=== PATIENT | female | born 1945 | race Caucasian/White ===

== ENCOUNTER → 2016-04-09 | Outpatient (CLI) | payer OTHER ==
[~2016-04-09] MED LIST: ASCO500T3 PO; ASPCH81X PO; ATEN100T8 PO; ATOR10TA88 PO; CALC-354 PO; CHOL2000 PO; FEXO1TAB46 PO; FLUT0.15 NAE; LEVO100T7 PO; LOSA1TAB38 PO; MULTCHW PO; SPIR50TA3 PO
== END | disposition home or self-care (01) ==
LOC: C.PATHSPEC 13:52
PROVIDERS: ATTEND Dermatology
DX: L82.1 Other seborrheic keratosis (principal); L72.0 Epidermal cyst

== ENCOUNTER → 2016-04-09 | Outpatient (CLI) | payer OTHER ==
[2016-04-09 09:58] LABS: BLOOD UREA NITROGEN 45 mg/dl (7-18); BUN/CREATININE RATIO 26.7 (10-20); CALCIUM 8.9 mg/dl (8.5-10.1); CARBON DIOXIDE 22 mmol/L (21-32); CHLORIDE 107 mmol/L (98-107); GLUCOSE 99 mg/dl (70-99); POTASSIUM 3.6 mmol/L (3.5-5.1); SODIUM 141 mmol/L (136-145)
[2016-04-09 11:30] LABS: URINE APPEARANCE CLEAR (CLEAR); URINE BILIRUBIN NEG (NEG); URINE COLOR YELLOW; URINE EPITHELIAL CELL AUTO >30 /lpf (0-5); URINE NITRITE NEG (NEG); URINE SPECIFIC GRAVITY 1.012 (1.000-1.030); UROBILINOGEN NEG (NEG); ZZUR CULT IF INDIC CLEAN CATCH YES
[2016-04-09 11:40] LABS: MANUAL MICROSCOPIC REQUIRED? NO; REVIEW REQ? YES
== END | disposition home or self-care (01) ==
LOC: C.LAB 07:16
PROVIDERS: ATTEND Internal Medicine Geriatric Medicine
DX: R35.0 Frequency of micturition (principal); I10 Essential (primary) hypertension

== ENCOUNTER → 2016-04-10 | Outpatient (CLI) | payer OTHER | END | disposition home or self-care (01) | LOC: C.LABBC 10:54 | PROVIDERS: ATTEND Internal Medicine Geriatric Medicine | DX: I10 Essential (primary) hypertension (principal); R73.9 Hyperglycemia, unspecified; R35.0 Frequency of micturition ==

== ENCOUNTER → 2016-04-13 | Outpatient (CLI) | payer OTHER ==
[2016-04-13 10:03] LABS: BLOOD UREA NITROGEN 33 mg/dl (7-18); BUN/CREATININE RATIO 25.7 (10-20); CALCIUM 9.2 mg/dl (8.5-10.1); CARBON DIOXIDE 23 mmol/L (21-32); CHLORIDE 106 mmol/L (98-107); GLUCOSE 98 mg/dl (70-99); POTASSIUM 4.8 mmol/L (3.5-5.1); SODIUM 140 mmol/L (136-145)
== END | disposition home or self-care (01) ==
LOC: C.LAB 07:27
PROVIDERS: ATTEND Internal Medicine Geriatric Medicine
DX: R79.89 Other specified abnormal findings of blood chemistry (principal)

== ENCOUNTER → 2016-04-27 | Outpatient (CLI) | payer OTHER ==
[2016-04-27 11:38] LABS: BLOOD UREA NITROGEN 25 mg/dl (7-18); BUN/CREATININE RATIO 22.5 (10-20); CALCIUM 9.5 mg/dl (8.5-10.1); CARBON DIOXIDE 26 mmol/L (21-32); CHLORIDE 106 mmol/L (98-107); GLUCOSE 102 mg/dl (70-99); SODIUM 141 mmol/L (136-145)
== END | disposition home or self-care (01) ==
LOC: C.LAB 09:51
PROVIDERS: ATTEND Internal Medicine Geriatric Medicine
DX: R79.89 Other specified abnormal findings of blood chemistry (principal)

== ENCOUNTER → 2016-05-26 | Outpatient (CLI) | payer OTHER ==
[2016-05-26 13:51] LABS: BLOOD UREA NITROGEN 32 mg/dl (7-18); BUN/CREATININE RATIO 24.5 (10-20); CALCIUM 9.6 mg/dl (8.5-10.1); CARBON DIOXIDE 27 mmol/L (21-32); CHLORIDE 107 mmol/L (98-107); GLUCOSE 100 mg/dl (70-99); POTASSIUM 4.4 mmol/L (3.5-5.1); SODIUM 142 mmol/L (136-145)
== END | disposition home or self-care (01) ==
LOC: C.LAB 11:45
PROVIDERS: ATTEND Internal Medicine Geriatric Medicine
DX: R79.89 Other specified abnormal findings of blood chemistry (principal)

== ENCOUNTER → 2016-06-26 | Outpatient (CLI) | payer OTHER ==
[~2016-06-26] MED LIST changes: +ATOR10TA82 PO; -ATOR10TA88 PO
[2016-06-26 13:02] LABS: BLOOD UREA NITROGEN 33 mg/dl (7-18); BUN/CREATININE RATIO 25.4 (10-20); CALCIUM 9.1 mg/dl (8.5-10.1); CARBON DIOXIDE 27 mmol/L (21-32); CHLORIDE 106 mmol/L (98-107); GLUCOSE 91 mg/dl (70-99); POTASSIUM 4.4 mmol/L (3.5-5.1); SODIUM 141 mmol/L (136-145)
== END | disposition home or self-care (01) ==
LOC: C.LAB 11:10
PROVIDERS: ATTEND Internal Medicine Geriatric Medicine
DX: R79.89 Other specified abnormal findings of blood chemistry (principal)

== ENCOUNTER → 2016-07-01 | Outpatient (CLI) | payer OTHER ==
--- NOTE | 2016-07-01 11:22 | DIAGNOSTIC IMAGING REPORT ---
RENAL ULTRASOUND CLINICAL HISTORY: Stage III chronic kidney disease. COMPARISON STUDY: None. TECHNIQUE: Sonography of the kidneys and the urinary bladder was performed. FINDINGS: The right kidney measures 10.1 x 4.2 x 3.7 cm and the left measures 10.3 x 4.6 x 4.6 cm. Renal echogenicity and size is normal. There is no significant cortical thinning. There is no hydronephrosis. No mass or calculus is identified. The bladder suboptimally assessed due to underdistention. There is fatty infiltration of the liver. IMPRESSION: 1. No hydronephrosis. Unremarkable sonographic appearance of the kidneys. 2. Fatty liver. Electronically signed by: Bin Baugh M.D. 07/01/2016 11:20 AM Dictated Date/Time: 07/01/2016 11:18 AM
== END | disposition home or self-care (01) ==
LOC: C.ULTRBC 10:30
PROVIDERS: ATTEND Internal Medicine Geriatric Medicine
DX: N18.3 Chronic kidney disease, stage 3 (moderate) (principal)

== ENCOUNTER → 2016-08-05 | Outpatient (CLI) | payer OTHER ==
[2016-08-05 10:30] LABS: BASO % 0.3 %; BASO ABS # 0.02 K/uL (0-0.2); COMPLETE YES; EOS % 2.5 %; HEMATOCRIT 40.2 % (37-47); IG% 0.3 %; LYMPH ABS # 2.84 K/uL (1.2-3.4); MEAN CELL VOLUME 91.6 fL (80-100); MEAN CORPUSCULAR HEMOGLOBIN 30.3 pg (25-34); MEAN CORPUSCULAR HGB CONC 33.1 g/dl (32-36); MEAN PLATELET VOLUME 9.7 fL (7.4-10.4); MONO % 9.5 %; NEUT % 46.4 %; PLATELET COUNT 224 K/uL (130-400); RED BLOOD COUNT 4.39 M/uL (4.2-5.4); WHITE BLOOD COUNT 6.92 K/uL (4.8-10.8)
[2016-08-05 10:32] LABS: URINE APPEARANCE CLEAR (CLEAR); URINE BILIRUBIN NEG (NEG); URINE COLOR YELLOW; URINE NITRITE NEG (NEG); URINE PH 7.5 (4.5-7.5); URINE SPECIFIC GRAVITY 1.016 (1.000-1.030); UROBILINOGEN NEG (NEG); ZZUR CULT IF INDIC CLEAN CATCH NO
[2016-08-05 10:34] LABS: MANUAL MICROSCOPIC REQUIRED? NO; REVIEW REQ? NO
[2016-08-05 10:51] LABS: BLOOD UREA NITROGEN 28 mg/dl (7-18); BUN/CREATININE RATIO 21.9 (10-20); CALCIUM 9.2 mg/dl (8.5-10.1); CARBON DIOXIDE 28 mmol/L (21-32); CHLORIDE 107 mmol/L (98-107); GLUCOSE 99 mg/dl (70-99); MAGNESIUM 2.3 mg/dl (1.8-2.4); PHOSPHORUS 3.1 mg/dl (2.5-4.9); POTASSIUM 4.2 mmol/L (3.5-5.1); SODIUM 142 mmol/L (136-145)
[2016-08-05 11:20] LABS: URINE PROTIEN/CREAT RATIO 0.2 (0-0.2); URINE TOTAL PROTEIN 11.8 mg/dl (0-11.9)
[2016-08-06 16:13] LABS: ALBUMIN 3.8 G/DL (3.8-4.8); TOTAL PROTEIN 6.8 G/DL (6.2-8.3)
== END | disposition home or self-care (01) ==
LOC: C.LAB 09:27
PROVIDERS: ATTEND Internal Medicine Nephrology
DX: N18.3 Chronic kidney disease, stage 3 (moderate) (principal)

== ENCOUNTER → 2016-09-25 | Outpatient (CLI) | payer OTHER ==
[~2016-09-25] MED LIST changes: -ATOR10TA82 PO; +ATOR10TA88 PO
--- NOTE | 2016-09-25 12:25 | MAMMOGRAPHY REPORT ---
BILATERAL DIGITAL DIAGNOSTIC MAMMOGRAM TOMOSYNTHESIS WITH CAD AND TARGETED LEFT ULTRASOUND: 09/25/2016 CLINICAL HISTORY: Short interval follow-up of left breast mass. TECHNIQUE: Breast tomosynthesis in addition to standard 2D mammography was performed. Current study was also evaluated with a Computer Aided Detection (CAD) system. Bilateral CC and MLO 2-D and tomosy nthesis images were obtained. COMPARISON: Comparison is made to exams dated: 09/24/2015 ultrasound, 09/24/2015 mammogram, 03/25/2015 ult rasound, 03/25/2015 mammogram, 09/14/2014 aspiration, and 09/14/2014 mammogram - [facility] nter. BREAST COMPOSITION: The tissue of both breasts is heterogeneously dense, which may obscure small mas ses. FINDINGS: There has been no significant interval change mammographically compared to prior exams. T he posterior left breast mass is partially visualized on the exam but does appear stable dating back to at least the July 2013 exam on the MLO view as well as the 2012 exam on the cc view. The remainder of both breasts are stable compared to prior exams, without suspicious masses, calcifications, or ar eas of architectural distortion noted. A biopsy marker clip is again noted in the left breast. Scat tered bilateral benign-appearing calcifications are stable. Targeted ultrasound was performed of the area of the left breast mass. In the left breast at 4:00, 3 cm from the nipple, again noted is a circumscribed oval anechoic mass with a thin internal septation , measuring 4 x 3 x 7 mm. This is stable on ultrasound dating back to at least March 2015 and has the appearance of a cyst on ultrasound. This corresponds with the stable mammographic mass and given the benign morphology and long-term stability, it is considered benign. IMPRESSION: ACR BI-RADS CATEGORY 2: BENIGN, TARGETED ULTRASOUND ACR BI-RADS CATEGORY 2: BENIGN Circumscribed 7 mm cyst in the left breast at 4:00 is stable on ultrasound dating back to March and is stable mammographically dating back to 2012 and 2013. The mass is considered benign given t he benign morphology and long-term stability. There is no mammographic or targeted sonographic evide nce of malignancy. A 1 year screening mammogram is recommended. The patient has been verbally notifi ed of the results. Approximately 10% of breast cancers are not detected with mammography. A negative mammographic report should not delay biopsy if a clinically suggestive mass is present. Nella Majano M.D. ah/:09/25/2016 08:14:23 [employer]electric Component Machinist: Cecilia MOODY(Avel)(M), [facility] letter sent: Normal 1/2 BI-RADS Code: ACR BI-RADS Category 2: Benign Ultrasound BI-RADS: ACR BI-RADS Category 2: Benign
== END | disposition home or self-care (01) ==
LOC: C.MAMM 07:47
PROVIDERS: ATTEND Internal Medicine Geriatric Medicine
DX: R92.2 Inconclusive mammogram (principal); N63 Unspecified lump in breast

== ENCOUNTER → 2016-10-08 | Outpatient (CLI) | payer OTHER ==
[2016-10-08 10:06] LABS: BASO % 0.4 %; BASO ABS # 0.03 K/uL (0-0.2); COMPLETE YES; EOS % 2.2 %; HEMATOCRIT 39.8 % (37-47); IG% 0.1 %; LYMPH % 28.1 %; LYMPH ABS # 2.15 K/uL (1.2-3.4); MEAN CELL VOLUME 91.7 fL (80-100); MEAN CORPUSCULAR HEMOGLOBIN 30.9 pg (25-34); MEAN CORPUSCULAR HGB CONC 33.7 g/dl (32-36); MEAN PLATELET VOLUME 9.8 fL (7.4-10.4); MONO % 9.5 %; NEUT % 59.7 %; PLATELET COUNT 228 K/uL (130-400); RED BLOOD COUNT 4.34 M/uL (4.2-5.4); WHITE BLOOD COUNT 7.66 K/uL (4.8-10.8)
[2016-10-08 10:42] LABS: ESTIMATED AVERAGE GLUCOSE 123 mg/dl; HA1C FLAG Normal (Normal)
[2016-10-08 10:43] LABS: ALKALINE PHOSPHATASE 65 U/L (45-117); ALT/SGPT 63 U/L (12-78); AST/SGOT 34 U/L (15-37); BLOOD UREA NITROGEN 33 mg/dl (7-18); BUN/CREATININE RATIO 27.3 (10-20); CALCIUM 9.8 mg/dl (8.5-10.1); CARBON DIOXIDE 29 mmol/L (21-32); CHLORIDE 108 mmol/L (98-107); GLUCOSE 96 mg/dl (70-99); HDL CHOLESTEROL 42 mg/dl; POTASSIUM 4.2 mmol/L (3.5-5.1); SODIUM 143 mmol/L (136-145)
[2016-10-08 10:49] LABS: CHOLESTEROL 146 mg/dl (0-200); CHOLESTEROL/HDL RATIO 3.5; LDL CHOLESTEROL CALCULATED 60 mg/dl; TRIGLYCERIDES 222 mg/dl (0-150); VERY LOW DENSITY LIPOPROT CALC 44 mg/dl
== END | disposition home or self-care (01) ==
LOC: C.LAB 09:04
PROVIDERS: ATTEND Internal Medicine Nephrology
DX: I10 Essential (primary) hypertension (principal); E03.9 Hypothyroidism, unspecified; E78.5 Hyperlipidemia, unspecified; R73.9 Hyperglycemia, unspecified; N18.3 Chronic kidney disease, stage 3 (moderate)

== ENCOUNTER → 2016-10-15 | Outpatient (CLI) | payer OTHER ==
--- NOTE | 2016-10-15 09:11 | DIAGNOSTIC IMAGING REPORT ---
TWO VIEW CHEST CLINICAL HISTORY: Bronchitis. FINDINGS: PA and lateral chest radiographs are correlated with chest CT dated 06/27/2007. The heart is enlarged. The pulmonary vasculature is noncongested. The lungs and pleural spaces are clear. There is no pneumothorax. The skeletal structures are osteopenic. The bony thorax appears intact. Degenerative change is noted in the thoracic spine. IMPRESSION: Cardiomegaly with no active disease in the chest. Electronically signed by: George Smith M.D. 10/15/2016 9:10 AM Dictated Date/Time: 10/15/2016 9:09 AM
== END | disposition home or self-care (01) ==
LOC: C.RADBC 08:35
PROVIDERS: ATTEND Internal Medicine Geriatric Medicine
DX: J20.9 Acute bronchitis, unspecified (principal); I51.7 Cardiomegaly

== ENCOUNTER → 2017-02-16 | Outpatient (CLI) | payer OTHER ==
[~2017-02-16] MED LIST changes: +ATOR10TA82 PO; -ATOR10TA88 PO
--- NOTE | 2017-02-16 15:16 | DIAGNOSTIC IMAGING REPORT ---
R KNEE 3 VIEWS, R TIBIA/FIBULA 2 VIEWS ROUTINE CLINICAL HISTORY: FALL. Right knee and right lower leg pain. COMPARISON STUDY: None. FINDINGS: Moderate cartilage space narrowing within the medial compartment of the knee. There are tricompartmental osteophytes. No fracture or dislocation within the right knee, right tibia, or fibula. Tiny ossific density along the medial aspect of the patella likely represents an osteophyte. There is no knee effusion to suggest an acute fracture. Mild soft tissue edema within the lower leg. This is likely chronic. No radiopaque foreign bodies. IMPRESSION: No fracture or dislocation within the right knee or right lower leg. Electronically signed by: Isaak Lynch M.D. 02/16/2017 3:15 PM Dictated Date/Time: 02/16/2017 3:11 PM
== END | disposition home or self-care (01) ==
LOC: C.RADBC 14:07
PROVIDERS: ATTEND Physician Assistant
DX: M25.561 Pain in right knee (principal); M89.8X6 Other specified disorders of bone, lower leg; W01.0XXA Fall on same level from slipping, tripping and stumbling without subsequent striking against object, initial encounter

== ENCOUNTER → 2017-04-19 | Outpatient (CLI) | payer OTHER ==
[2017-04-19 10:08] LABS: BLOOD UREA NITROGEN 25 mg/dl (7-18); CALCIUM 9.6 mg/dl (8.5-10.1); CARBON DIOXIDE 26 mmol/L (21-32); CREATININE 1.04 mg/dl (0.60-1.20); GLUCOSE 98 mg/dl (70-99); POTASSIUM 3.9 mmol/L (3.5-5.1); SODIUM 138 mmol/L (136-145)
== END | disposition home or self-care (01) ==
LOC: C.LAB 09:05
PROVIDERS: ATTEND Internal Medicine Geriatric Medicine
DX: I10 Essential (primary) hypertension (principal); E03.9 Hypothyroidism, unspecified; R73.9 Hyperglycemia, unspecified

== ENCOUNTER → 2017-06-16 | Outpatient (CLI) | payer OTHER | END | disposition home or self-care (01) | LOC: C.PATHSPEC 18:03 | PROVIDERS: ATTEND Dermatology | DX: C44.310 Basal cell carcinoma of skin of unspecified parts of face (principal) ==

== ENCOUNTER → 2017-08-10 | Outpatient (CLI) | payer OTHER ==
[2017-08-10 14:17] LABS: BLOOD UREA NITROGEN 32 mg/dl (7-18); CALCIUM 9.6 mg/dl (8.5-10.1); CARBON DIOXIDE 25 mmol/L (21-32); CREATININE 1.18 mg/dl (0.60-1.20); GLUCOSE 108 mg/dl (70-99); POTASSIUM 4.2 mmol/L (3.5-5.1); SODIUM 139 mmol/L (136-145); URIC ACID 7.5 mg/dl (2.6-7.2)
== END | disposition home or self-care (01) ==
LOC: C.LABBC 10:20
PROVIDERS: ATTEND Physician Assistant Medical
DX: M25.50 Pain in unspecified joint (principal)

== ENCOUNTER → 2017-10-19 | Outpatient (CLI) | payer OTHER ==
[~2017-10-19] MED LIST changes: -SPIR50TA3 PO; +SPIR50TA5 PO
--- NOTE | 2017-10-19 15:21 | MAMMOGRAPHY REPORT ---
UNILATERAL LEFT DIGITAL DIAGNOSTIC MAMMOGRAM TOMOSYNTHESIS AND TARGETED LEFT ULTRASOUND: 10/19/2017 CLINICAL HISTORY: 72-year-old woman called back from screening mammography for a 5 mm nodular asymmet ry in the medial left breast. Patient has a history of prior benign left breast stereotactic biopsy. TECHNIQUE: Spot compression left CC and MLO tomosynthesis images were obtained. COMPARISON: Comparison is made to exams dated: 09/29/2017 mammogram, 09/25/2016 mammogram, 09/24/2015 [facility] mogram, 03/25/2015 mammogram, 09/14/2014 mammogram, and 08/28/2014 mammogram - [facility] BREAST COMPOSITION: The tissue of left breast is heterogeneously dense, which may obscure small radha s. FINDINGS: The spot compression tomosynthesis views of the left breast demonstrate no obvious mass, fo efe area of architectural distortion or suspicious calcification. There is a lobulated and circumscr ibed 10 mm mass in the far posterior retroareolar left breast, that appears stable mammographically d ating back to at least 2012, and is considered benign given greater than 2 years of stability. There is also a stable dumbbell-shaped biopsy marker clip in the retroareolar left breast. Additionally, the tissue pattern of the left breast including the medial asymmetry is somewhat similar to the 2013 and 2010 mammograms, suggesting normal overlapping tissue. Targeted ultrasound was performed in the medial left breast including the 12:00 and 6:00 axes. There is an ill-defined hypoechoic small area of shadowing in the 11:00 axis, 5 cm from the nipple that mo st likely represents a shadowing Sanket's ligament as opposed to a shadowing mass given that it parti ally effaces in the radial plane. Focal duct ectasia is seen in the retroareolar left breast. No de finitive suspicious solid or cystic mass is seen on targeted ultrasound throughout the medial left br east. IMPRESSION: ACR-BI-RADS CATEGORY 3: PROBABLY BENIGN, ULTRASOUND ACR-BI-RADS CATEGORY 3: PROBABLY MELANIA GN 1. There is effacement of the 5 mm nodular asymmetry in the medial left breast with supplemental spo t compression tomosynthesis images and this asymmetry appears somewhat similar to the prior 2010 and 2012 mammograms, suggesting normal overlapping tissue. No suspicious sonographic correlate was ident ified either. However, given the conspicuous nature on the recent screening mammogram, a short inter lin follow-up left tomosynthesis mammogram is recommended to ensure stability in 6 months. 2. There was a small ill-defined area of shadowing in the 11:00 left breast, 5 cm from the nipple on targeted ultrasound that was incidentally identified, as no focal area of distortion is seen on the spot compression tomosynthesis views. Although this most likely represents a shadowing Sanket's liga ment, a short interval follow-up targeted left breast ultrasound is also recommended in 6 months to e nsure stability. These results and recommendations were discussed with the patient at the time of the exam. She tenta tively scheduled the follow-up appointment prior to leaving our department. Some breast cancers are not detected with mammography. A negative mammographic report should not manfred y biopsy if a clinically suggestive mass is present. Manisha Chaves M.D. ay/:10/19/2017 12:40:21 Manager Of Hospital: RT Esteban(Avel)(M), [facility] letter sent: Follow Up Recommended 3 OVERALL STUDY BIRADS: 3 Probably benign
== END | disposition home or self-care (01) ==
LOC: C.MAMM 09:51
PROVIDERS: ATTEND Internal Medicine Geriatric Medicine
DX: N64.89 Other specified disorders of breast (principal)

== ENCOUNTER → 2017-11-03 | Outpatient (CLI) | payer OTHER ==
[2017-11-03 10:00] LABS: BASO % 0.4 %; BASO ABS # 0.03 K/uL (0-0.2); EOS % 3.1 %; EOS ABS # 0.21 K/uL (0-0.5); HEMATOCRIT 42.6 % (37-47); HEMOGLOBIN 14.3 g/dL (12.0-16.0); IG# 0.02 K/uL (0.00-0.02); LYMPH % 35.4 %; LYMPH ABS # 2.39 K/uL (1.2-3.4); MEAN CELL VOLUME 91.6 fL (80-100); MEAN CORPUSCULAR HEMOGLOBIN 30.8 pg (25-34); MEAN CORPUSCULAR HGB CONC 33.6 g/dl (32-36); MEAN PLATELET VOLUME 9.6 fL (7.4-10.4); MONO % 9.8 %; MONO ABS # 0.66 K/uL (0.11-0.59); NEUT ABS # 3.45 K/uL (1.4-6.5); PLATELET COUNT 237 K/uL (130-400); RED CELL DISTRIBUTION WIDTH CV 13.7 % (11.5-14.5); RED CELL DISTRIBUTION WIDTH SD 45.3 fL (36.4-46.3); WHITE BLOOD COUNT 6.76 K/uL (4.8-10.8)
[2017-11-03 10:36] LABS: HEMOGLOBIN A1C 6.3 % (4.5-5.6)
[2017-11-03 10:45] LABS: ALBUMIN 3.7 gm/dl (3.4-5.0); BLOOD UREA NITROGEN 34 mg/dl (7-18); CALCIUM 9.9 mg/dl (8.5-10.1); CARBON DIOXIDE 28 mmol/L (21-32); CHOLESTEROL 166 mg/dl (0-200); GLUCOSE 107 mg/dl (70-99); LDL CHOLESTEROL CALCULATED 69 mg/dl; PHOSPHORUS 2.9 mg/dl (2.5-4.9); POTASSIUM 4.6 mmol/L (3.5-5.1); SODIUM 138 mmol/L (136-145)
== END | disposition home or self-care (01) ==
LOC: C.LAB 09:24
PROVIDERS: ATTEND Internal Medicine Nephrology
DX: I12.9 Hypertensive chronic kidney disease with stage 1 through stage 4 chronic kidney disease, or unspecified chronic kidney disease (principal); E03.9 Hypothyroidism, unspecified; E78.5 Hyperlipidemia, unspecified; R73.9 Hyperglycemia, unspecified; N18.3 Chronic kidney disease, stage 3 (moderate)

== ENCOUNTER 2021-12-09 08:13 | Observation (INO) ==
--- NOTE | 2021-10-21 15:57 | PAT Medication Instructions ---
Medication Instructions Date of Service October 21, 2021 Home Medications Medication Instructions Recorded levothyroxine 125 mcg tablet 125 mcg PO QAM #90 tabs 02/10/21 atenolol 100 mg-chlorthalidone 25 1 tab PO QAM #90 tabs 06/04/21 mg tablet losartan 100 mg tablet 100 mg PO QAM #90 tabs 06/04/21 spironolactone 25 mg tablet 50 mg PO QAM #180 tabs 06/09/21 aspirin 81 mg tablet,delayed release 81 mg PO QAM cholecalciferol (vitamin D3) 50 mcg (2,000 unit) capsule (Vitamin D3) 2,000 unit PO QAM fexofenadine 180 mg tablet (Paula Allergy) 180 mg PO HS Centrum Silver Women 1 tab PO QAM acetaminophen 500 mg tablet 1,000 mg PO TID PRN Pain flunisolide 25 mcg (0.025 %) nasal spray 2 sprays intranasal QAM calcium carbonate 600 mg calcium (1,500 mg) tablet 600 mg PO QAM levothyroxine 125 mcg tablet 125 mcg PO QAM atenolol 100 mg-chlorthalidone 25 mg tablet 1 tab PO QAM losartan 100 mg tablet 100 mg PO QAM spironolactone 25 mg tablet 50 mg PO QAM atorvastatin 10 mg tablet 10 mg PO HS trospium 20 mg tablet 20 mg PO QDL DO NOT take the morning of surgery cholecalciferol (vitamin D3) 50 mcg (2,000 unit) capsule (Vitamin D3) 2,000 unit PO QAM Centrum Silver Women 1 tab PO QAM calcium carbonate 600 mg calcium (1,500 mg) tablet 600 mg PO QAM losartan 100 mg tablet 100 mg PO QAM spironolactone 25 mg tablet 50 mg PO QAM trospium 20 mg tablet 20 mg PO QDL Take morning of surgery With a small sip of water, OTHERWISE NOTHING TO EAT OR DRINK AFTER MIDNIGHT: aspirin 81 mg tablet,delayed release 81 mg PO QAM (continue as normal unless told otherwise by surgeon) acetaminophen 500 mg tablet 1,000 mg PO TID PRN Pain (if needed) flunisolide 25 mcg (0.025 %) nasal spray 2 sprays intranasal QAM levothyroxine 125 mcg tablet 125 mcg PO QAM atenolol 100 mg-chlorthalidone 25 mg tablet 1 tab PO QAM Take evening before surgery fexofenadine 180 mg tablet (Paula Allergy) 180 mg PO HS acetaminophen 500 mg tablet 1,000 mg PO TID PRN Pain (if needed) atorvastatin 10 mg tablet 10 mg PO HS Other Notes If you have any questions please call us at [phone] or [phone] or [phone] or [phone]
--- NOTE | 2021-10-28 08:51 | Anesthesiology Consultation ---
Date of Service October 28, 2021 Assessment & Plan (1) Encounter for pre-operative examination: Chart Review Chart Review: Pending: Refer to Additional Notes / Consult section (pending allergy testing to confirm if patient has true procaine/marcaine allergy and preop Covid testing results ) and Patient seen in Pre Admission Testing Pt with procaine allergy (lip swelling) and possible marcaine/bupivacaine allergy (lips swelled/turned blue post op day #4 from knee scope in 2002)- limited records (only operative note available). Discussed with Dr. Vásquez- patient will need allergy testing prior to surgery- did send referral to [facility]. Surgeon's office and patient made aware Per PAT appt on 10/28/21, patient recently traveled to [place] to visit family/daughter- stayed at family's house (10/10/21 to 10/19/21). No known Covid positive exposures or Covid related symptoms. No known Covid infection in the past 90 days. Pt is vaccinated for Covid. Preop Covid testing scheduled 12/05/21 = will await results. Educated on importance of self quarantining, social distancing and wearing mask in public for the patient one week prior to surgery and after Covid testing done Teaching & Discussion Pre-Anesthesia Teaching/Discussion Notes: Instructed NPO after midnight before surgery,except medications with 15 cc of water. Medication instructions provided according to the PAT guidelines. History Surgery Operation Date: 12/09/21 09:00 Proposed Procedures p Right Total Knee Arthroplasty - Soto Sheppard MD Height/Weight Height: 5 ft 1 in Weight: 104.1 kg Allergies Allergy/AdvReac Type Severity Reaction Status Date / Time procaine Allergy Intermediate LIPS Verified 10/27/21 09:57 SWELLING famotidine Allergy Mild Rash Verified 10/27/21 09:57 Penicillins Allergy Mild Hives Verified 10/27/21 09:57 adhesive tape AdvReac Unknown localized Verified 10/27/21 09:57 redness/rash/irritation amlodipine [From Norvas] AdvReac Unknown Unknown Verified 10/27/21 09:57 doxazosin AdvReac Unknown Dizziness Verified 10/27/21 09:57 lisinopril AdvReac Unknown Unknown Verified 10/27/21 09:57 Codeine Derivative AdvReac Unknown GI upset Uncoded 10/27/21 09:57 Neosporin OINT AdvReac Unknown localized Uncoded 10/27/21 09:57 redness/irritation Plendil TB24 AdvReac Unknown localized Uncoded 10/27/21 09:57 redness/irritation Poly Bacitracin OINT AdvReac Unknown localized Uncoded 10/27/21 09:57 redness/irritation Polysporin OINT AdvReac Unknown localized Uncoded 10/27/21 09:57 redness/irritation Additional Notes: Did make surgeon's office aware of procaine allergy Medications Home Medications Medication Instructions Recorded Confirmed Last Taken aspirin 81 mg tablet,delayed 81 mg PO QAM 01/26/18 10/27/21 10/18/20 release cholecalciferol (vitamin D3) 50 2,000 unit PO QAM 01/26/18 10/27/21 10/18/20 mcg (2,000 unit) capsule (Vitamin D3) fexofenadine 180 mg tablet 180 mg PO HS 01/26/18 10/27/21 10/17/20 (Paula Allergy) multivit with 1 tab PO QAM 01/26/18 10/27/21 10/18/20 [id number]-GQ-lutein 8 mg iron-400 mcg-300 mcg tablet (Centrum Silver Women) acetaminophen 500 mg tablet 1,000 mg PO TID PRN Pain 11/01/18 10/27/21 10/18/20 flunisolide 25 mcg (0.025 %) nasal 2 sprays intranasal QAM 11/01/18 10/27/21 10/18/20 spray calcium carbonate 600 mg calcium 600 mg PO QAM 11/05/20 10/27/21 Unknown (1,500 mg) tablet atenolol 100 mg-chlorthalidone 25 1 tab PO QAM #90 tabs 06/04/21 10/27/21 Unknown mg tablet losartan 100 mg tablet 100 mg PO QAM #90 tabs 06/04/21 10/27/21 Unknown spironolactone 25 mg tablet 50 mg PO QAM #180 tabs 06/09/21 10/27/21 Unknown atorvastatin 10 mg tablet 10 mg PO HS 10/21/21 10/27/21 Unknown trospium 20 mg tablet 20 mg PO QDL 10/21/21 10/27/21 Unknown levothyroxine 125 mcg tablet 125 mcg PO QAM #90 tabs 10/27/21 10/27/21 Unknown montelukast 10 mg tablet 10 mg PO QPM #90 tabs 10/27/21 10/27/21 Unknown Past Medical History Medical History (Updated 10/29/21 @ 09:48 by Diamond Abad PA-C) Chronic kidney disease STAGE 3- follows annually with nephro (Dr. Clement) History of anesthesia problem With knee scope (2002)- only records available is operative note- no significant issues noted- Marcaine used during procedure- pt had issues with lip swelling and breathing issues post op day #4- unsure if related to Marcaine or pain medication History of basal cell carcinoma S/p excised Hyperlipidemia Hypertension Hypothyroidism Overactive bladder Prediabetes Primarily focused on lifestyle modifications. Exercise / Class Metabolic Activity III < 4 Walking/Shop/Light housework (one flight of stairs - no chest pain, mild SOB ) Past Family History Family History Father Family history of diabetes mellitus CHF (congestive heart failure) Heart disease Grandmother Family history of diabetes mellitus Mother Family history of diabetes mellitus Dementia Grandmother (Paternal) Breast cancer Grandmother (Paternal) Stroke Other No family history of adverse response to anesthesia Denies family history of Ovarian cancer Prostate cancer Myocardial infarction Lung cancer Colorectal cancer Past Surgical History Surgical History History of arthroscopy RT KNEE History of bilateral tubal ligation History of breast biopsy History of colonoscopy History of dilatation and curettage History of tooth extraction Macular hole RT EYE (SURGERY TO REPAIR?) Status post Mohs surgery Past Anesthesia History No Hx of Anesthesia Complications (with exception to knee arthroscopy 2002 (lip swelling/breathing issues)- unsure if related to Marcaine vs pain medication ( does have procaine allergy)) and No Family Hx of Anesthesia Complications History of PONV No Hx of PONV and No Hx of Motion Sickness Social History Smoking Status: Former smoker tobacco type: cigarettes Smoking cigarettes per day: 2-4 cigs/day Do You Dip or Chew Tobacco: No Smoking End Date: Hx Alcohol Use: Yes Alcohol type: beer and wine alcohol intake frequency: a few times a month Hx Substance Use: No substance use type: does not use Review of Systems Chronic allergic rhinitis- occ wheezing Occ snoring- no witnesssed apnea- no hx of sleep study Patient denies chest pain, shortness of breath at rest, reflux, cough, palpitations. No hx of seizures, stroke, [place]. No hx of blood clots or blood transfusions Physical Exam Vital Signs VITALS BP 142/64 (in right forearm- could not tolerate upper arm) P 64 TEMP 98.2 SP02 97% RESP 16 Constitutional no acute distress ENMT Mouth: no TMJ clicking Thyromental Distance: < 3.5 Finger Breadths (3.0) Mallampati Class: II (smaller airway ) Neck + limited neck extension (mild ) Respiratory normal respiratory effort; no respiratory distress Auscultation: lungs clear to auscultation bilaterally; no wheezes Cardiovascular Rate/Rhythm: regular rate and regular rhythm Heart Sounds: no murmur Vessels: no carotid bruit Musculoskeletal Spine: no pain with cervical ROM Extremities: extremities normal to inspection Psychiatric Orientation: alert Lab Results Anesthesia Preop Results Results Anesthesia Widget: WBC 7.12 K/ul (4.8-10.8) 10/28/21 Hgb 13.9 g/dl (12.0-16.0) 10/28/21 Hct 42.3 % (34.1-44.9) 10/28/21 Plt 255 K/uL (130-400) 10/28/21 Na 141 mmol/L (136-145) 10/24/21 K 4.6 mmol/L (3.5-5.1) 10/24/21 Cl 109 mmol/L (98-107) H 10/24/21 CO2 25 mmol/L (21-32) 10/24/21 BUN 36 mg/dl (6-23) H 10/24/21 Creat 1.11 mg/dl (0.6-1.2) 10/24/21 Glucose Level 117 mg/dl (70-99(Fasting)) H 10/24/21 PT 10.7 Seconds (9.0-12.0) 10/28/21 PTT 25.6 Seconds (21.0-31.0) 10/28/21 INR 1.0 (0.9-1.1) 10/28/21 TSH 1.738 uIu/ml (0.300-4.500) 10/24/21 HA1c 6.1 % (4.5-5.6) H 10/24/21 Blood Type A Positive 10/28/21 Antibody Screen NEGATIVE 10/28/21 Testing Electrocardiogram Date: 10/28/21 Findings: + NSR @ (64bpm ) Normal EKG per cardio. Chest X-Ray Date: 10/28/21 Findings: + NAD
--- NOTE | 2021-11-22 10:08 | History and Physical Report ---
DATE OF ADMISSION: 12/09/2021. CHIEF COMPLAINT: Persistent right knee pain and discomfort. HISTORY OF PRESENT ILLNESS: The patient is a 76-year-old female who now presents for surgical treatm ent of her right knee. She has got a long history of right knee pain and discomfort that has gradual ly gotten worse over time. We have been injecting her knee every 3 months, which has become less suc cessful. Helps for about 6 weeks. The last four to weeks has been pretty painful for her. She desc ribes global pain. The more she is up and on her knee, the more it hurts. She limps more as the day goes on. She has been putting knee surgery off due to her 's hernia surgery, but he is recov ered from this now and she would like to have her knee fixed. PAST MEDICAL HISTORY: Significant for: 1. Hypertension. 2. Low back pain/sciatica. 3. Obesity with a BMI of 43.5. 4. Basal cell skin cancer. PAST SURGICAL HISTORY: Includes: 1. Tubal ligation. 2. Breast biopsy. 3. Colonoscopy. 4. D and C. 5. Oral surgery. 6. Knee arthroscopy. ALLERGIES: TO MULTIPLE VARIOUS MEDICINES IN THE EMR. SHE DOES REPORT JIMENA ALLERGY. CURRENT MEDICATIONS: Include: 1. Tylenol. 2. Aspirin. 3. Atenolol-chlorthalidone. 4. Atorvastatin. 5. Calcium. 6. Vitamin D3. 7. Paula. 8. Levothyroxine. 9. Losartan. 10. Spironolactone. 11. Trospium. 12. Multivitamin. SOCIAL HISTORY: A 76-year-old female. The patient is . Does not smoke. No alcohol intake. FAMILY HISTORY: Noncontributory. REVIEW OF SYSTEMS: Negative for diabetes. No chest pain or shortness of breath. No history of DVT or PE. No known bleeding problems. PHYSICAL EXAMINATION: GENERAL: Shows a pleasant, elderly female. Looks to be in reasonably good health. HEENT: Benign. NECK: Supple. No lymphadenopathy. LUNGS: Clear to auscultation. HEART: Has a regular rate and rhythm. ABDOMEN: Soft, nontender, nondistended. EXTREMITIES: Grossly neurovascularly intact, except as follows: Examination of the right knee revea ls the patient walks with a slight bit of a limp. She has got moderate soft tissue envelope. She nguyen s got some mild diffuse edema distally. Range of motion is 0-120. She is tender pretty much anywher e around her knee to palpate. Small knee effusion. No pain with hip motion. X-RAYS: X-rays of the knee reveal advanced medial compartment arthritis. She has got complete loss of medial joint space. She has subchondral sclerosis. She has osteophytes primarily medially. She has got less severe disease, but similar on the left knee. ASSESSMENT: A 76-year-old white female with advanced bilateral knee degenerative joint disease, righ t side greater than left. She has failed conservative treatment. She would like to have her right k nee replaced. PLAN: We are going to proceed with right knee replacement. The risks and benefits of this procedure were explained to the patient and include, but not limited to DVT, PE, , infection, neurologica l injury, vascular injury, bleeding problem, pain, limited range of motion, stiffness, failure to rel ieve her symptoms, incomplete relief of symptoms, need for further surgery in the future, etc. The p atient understands and desires to proceed. Informed consent was obtained. The patient does report this PROCAINE allergy of some sort. We have injected her with Marcaine in e past and she has done fine. We will discuss this with anesthesia at the time of surgery. She is p vonda to be discharged to home. Job ID: [id number]
[~2021-12-09 08:13] MED LIST changes: +ACETAMINOPHEN 500 MG TAB PO SCH; -ASCO500T3 PO; -ASPCH81X PO; -ATEN100T8 PO; -ATOR10TA82 PO; +BUPIVACAINE 0.5 % 5 MG/1 ML PF 10ML VIAL ONE; +BUPIVACAINE LIPOSOME/PF 266 MG, BUPIVACAINE/EPINEPHRINE 50 ML, SODIUM CHLORIDE 0.9% 30 ... INFIL SCH; -CALC-354 PO; -CHOL2000 PO; +CeleBREX 200 MG CAP PO SCH; -FEXO1TAB46 PO; -FLUT0.15 NAE; -LEVO100T7 PO; -LOSA1TAB38 PO; +LR 15ML/HR IV SCH; +LR 60ML/HR IV SCH; +METOCLOPRAMIDE HCL 10 MG TABLET PO SCH; -MULTCHW PO; +ROPIVACAINE 0.5% 5 MG/ML 30 ML VIAL ONE; -SPIR50TA5 PO; +TRANEXAMIC ACID 1,000 MG **IV Intra-op IV SCH; +ceFAZolin 2000MG 2,000 MG/15 ML SYR IV SCH
[2021-12-09] MEDS ORDERED: fentaNYL citrate 100 MCG/2 ML VIAL ONE (08:16)
[2021-12-09] MEDS ORDERED: MIDAZOLAM HCL 1 MG/ML 2ML VIAL ONE (08:16)
--- NOTE | 2021-12-09 08:47 | History & Physical Bridge Note ---
Date of Service December 09, 2021 History & Physical Bridge Note I have examined the patient, reviewed the History & Physical and in the interval since the performance of the History & Physical I have noted the following changes of clinical significance: no changes noted
[2021-12-09] MEDS ORDERED: ONDANSETRON INJ 2 MG/ML 2 ML VIAL IV PRN ×2 (09:03→13:42)
[2021-12-09] MEDS ORDERED: ATROPINE SULFATE 0.1 MG/ML 10ML SYR IV PRN (09:03)
[2021-12-09] MEDS ORDERED: ePHEDrine sulfate 50 MG/ML AMP IV PRN (09:03)
[2021-12-09] MEDS ORDERED: fentaNYL citrate 100 MCG/2 ML VIAL IV PRN (09:03)
[2021-12-09] MEDS: ALLERGY Noted to ORDERED Medication SCH (09:11)
[2021-12-09] MEDS ORDERED: BUPIVACAINE LIPOSOME 1.3% 266 MG/20 ML VIAL ONE (10:00)
[2021-12-09] MEDS ORDERED: SODIUM CHLORIDE 0.9% PF 50 ML VIAL ONE (10:00)
[2021-12-09] MEDS ORDERED: BUPIVACAINE 0.25% 30 ML VIAL ONE (10:00)
[2021-12-09] MEDS ORDERED: EPINEPHrine INJ 1 MG/ML AMP ONE (10:00)
[2021-12-09] MEDS ORDERED: ONDANSETRON INJ 2 MG/ML 2 ML VIAL ONE (10:09)
[2021-12-09] MEDS ORDERED: PROPOFOL IV EMULSION 10 MG/ML 20 ML VIAL IV ONE ×4 (10:09→12:00)
[2021-12-09] MEDS ORDERED: ePHEDrine sulfate 50 MG/ML SYR ONE (10:48)
--- NOTE | 2021-12-09 12:36 | Operative Report ---
PG Post Operative Report Pre & Post Diagnosis Operation Date: 12/09/21 10:40 Pre-Op Diagnosis: Degenerative Joint Disease Right Knee Post-Op Diagnosis: Degenerative Joint Disease Right Knee I identified the patient and participated in the time-out.: Yes Procedure Operation Date: 12/09/21 10:40 Actual Procedures p Right Total Knee Arthroplasty, Cemented(Right) - Soto Sheppard MD Surgeon Soto Sheppard MD [place] Strip Stuart Reyes PA-C Estimated Blood Loss 50 Findings Consistent with Post-Op Diagnosis Operative findings were advanced right knee DJD. She had pretty extensive grade 4 [id number] disease the entire medial compartment. She is a varus deformity to her knee. Large soft tissue envelope. Fluids 1000 cc Specimens Right knee sent for pathology Drains None Anesthesia Type Spinal MAC Complications none Indications Patient 76-year-old female has had several year history of increasing right knee pain discomfort. She Attempted conservative treatment over the years which would become less successful. X-rays show advanced right knee medial compartment arthritis. She elected proceed with a total knee arthroplasty. Description of Procedure Operative implants consist of: 1 Biomet Vanguard size 62.5 right posterior stabilized femoral component. 2. Biomet size 63 tibial tray. 3. 10 mm posterior stabilized polyethylene insert. 4. 28 x 8 all Paller patella. The patient was taken to the operating, identified, placed on the operating table in the supine position. All contact areas were appropriately padded. A spinal anesthetic and abductor canal block had provided in the holding area. She received IV antibiotics provided by anesthesia. All of right thigh tourniquet was placed. A Hall catheter was placed in sterile fashion. The right lower extremities then prepped and draped in usual sterile fashion. The right leg was elevated exsanguinated with use of an Esmarch and the tourniquet was set at 300 mmHg. An anterior approach to the right knee was then performed through a longitudinal incision centered over the patella. Sharp dissection was carried through subcutaneous tissue down the level of the extensor mechanism. A medial parapatellar arthrotomy incision was made. Some subperiosteal dissection was carried out medially. The fat pad was resected from Neath patella tendon. The lateral patellofemoral ligament was released. Patella subluxated laterally and the knee was flexed. The osteophytes taken off distal femur. ACL and PCL were then released from distal femur the tibia subluxated anteriorly. The external tibial alignment jig was then placed in the interface the tibia and adjusted 14 mm medially. Proximal tibial cut was made remove about 2 mm of bone from most deficient aspect medial tibial plateau. Some osteophytes were taken off medially. The tibia sized to a size 63. Attention drawn the femur. The distal femur was entered with a sharp drill. Intramedullary canal was suction. A right 5 degree valgus cutting guide was placed. The distal femoral cutting block was pinned in place. Distal femoral cut was made to take an additional 3 mm bone off distal femur. The femur was then sized to a size 62.5. The AP cutting block was pinned parallel to the epicondylar axis which was 4 degrees of external rotation. Anterior cut, anterior chamfer, posterior cut, posterior chamfer cuts were made. The box cutting guide was placed in just slight lateral box cut was made. The knee was flexed. The remnants of the medial and lateral menisci were excised. The osteophyte taken off the posterior aspect of femur. A trial femoral component was placed. Tibial tray was pinned in maximum external rotation and the drill and stem punch were used to create the defect in proximal tibia for the tibial tray. The knee was then trialed and the 10 mm insert fit most appropriately. Attention drawn the patella. The patella was cleaned of all soft tissues. Patella thickness measured 18 mm in thickness was cut down to 12. Was sized to a size 28 patella. The lug holes were drilled for the 28 patella. The lateral osteophyte was removed. Patella button was placed. Knee was taken through range of motion patella tracked nicely with no thumbs test. Attention drawn to place the permanent components. Nupathe all trial components were removed. Bone plug was placed in the distal femur limit blood loss. Double batch Palacos G cement was mixed. A Biomet Vanguard size 62.5 right posterior stabilized femoral component, size 63 tibial tray, a 10 mm posterior stabilized polyethylene insert, and a 28 x 8 all Paller patella then cemented in place. The knee was brought out into full extension until cement hardened. Final cement check was then performed. The pericapsular tissues were injected with a total of 100 cc of combination of 20 cc of Exparel, 30 cc of normal saline, 50 cc of quarter percent Marcaine with epinephrine. P atient did receive 1 g tranexamic acid per the tourniquet was then let down for final tourniquet time of 60 minutes. Hemostasis assured use electrocautery. Extensor mechanism closed with combination 1 PDS suture #1 Vicryl suture in a [id number] fashion. Extensor mechanism checked found to be intact the subcutaneous tissues then closed with 2 Dexon suture in a buried interrupted fashion skin was closed skin devan. Leg was then cleaned and dried and sterile dressed with Xeroform, 4 x 4's, sterile cast padding, Raul bandage were applied. Patient then transferred to the recovery room in stable condition. Patient tolerated procedure well and there were no complications. Stuart Reyes, my physician leasing assistant, was present for the entire procedure. His assistance was essential and required for appropriate patient positioning, prepping and draping, surgical exposure, performing the technical details of the operation, placement the implants, closure of the wound, and placement of the sterile bandage. I attest to the content of the Intraoperative Record and any orders documented therein. Any exceptions are noted below.
--- NOTE | 2021-12-09 13:24 | Anesthesiology Progress Note ---
Date of Service December 09, 2021 Anesthesia Post Procedure Vital Signs Vital Signs: Temp Pulse Pulse Resp BP BP Pulse Ox 12/09/21 12:55 58 L 16 125/50 L 93 12/09/21 13:05 97.7 F 55 L 19 130/50 L 92 12/09/21 12:45 60 18 119/55 L 93 12/09/21 12:36 97.3 F L 63 13 95/47 L 97 12/09/21 08:47 97.7 F 70 20 160/70 H 98 O2 Del Method 12/09/21 12:55 Room Air 12/09/21 13:05 Room Air 12/09/21 12:45 Room Air 12/09/21 12:36 Room Air 12/09/21 08:47 Room Air Transfer of Care Handoff Completed per policy Notes Mental Status: alert / awake / arousable and participated in evaluation Patient Amnestic to Procedure: Yes Nausea / Vomiting: adequately controlled Pain: adequately controlled Airway Patency, RR, SpO2: stable & adequate BP & HR: stable & adequate Hydration State: stable & adequate Anesthetic Complications: no major complications apparent and Pt Satisfied with anesthetic care
[2021-12-09] MEDS ORDERED: MAGNESIUM HYDROXIDE SUSP 30 ML UDC PO PRN (13:42)
[2021-12-09] MEDS ORDERED: NALOXONE HCL 0.4 MG/1 ML VIAL/CARP IV PRN (13:42)
[2021-12-09] MEDS ORDERED: METOCLOPRAMIDE HCL INJ 5 MG/ML 2 ML VIAL IV PRN (13:42)
[2021-12-09] MEDS ORDERED: bisacodyL 10 MG SUPP PR PRN (13:42)
[2021-12-09] MEDS ORDERED: HYDROmorphone INJ 0.5 MG/0.5 ML SYR IV PRN (13:42)
[2021-12-09] MEDS ORDERED: oxyCODONE HCL IR 5 MG TAB (IMMEDIATE RELEASE) PO PRN (13:42)
--- NOTE | 2021-12-09 13:45 | XRay Report ---
TWO VIEWS RIGHT KNEE CLINICAL HISTORY: Postoperative examination. FINDINGS: AP and crosstable lateral portable views of the right knee are obtained. A right knee arthr oplasty is in near anatomic alignment. There has been undersurface remodeling of the patella. No acut e fracture is seen. There are expected postoperative changes around the knee including skin clips, so ft tissue edema, and subcutaneous gas. IMPRESSION: Expected postoperative changes status post right knee arthroplasty. No acute fracture is seen. ACT 112: Negative or not required by law. Electronically signed by: George Smith M.D. 12/09/2021 1:44 PM
[2021-12-09] MEDS: ACETAMINOPHEN 500 MG TAB PO SCH ×2 (14:23→23:02)
[2021-12-09] MEDS: KETOROLAC TROMETHAMINE 15 MG/ML VIAL IV SCH ×2 (14:23→20:08)
[2021-12-09] MEDS: SODIUM CHLORIDE 0.9% 1000ML 1,000 ML IV SCH ×2 (14:33→23:04)
[2021-12-09] MEDS: ASCORBIC ACID 500 MG TAB PO SCH (15:53)
[2021-12-09] MEDS: ceFAZolin 2000MG 2,000 MG/15 ML SYR IV SCH (15:54)
[2021-12-09] MEDS ORDERED: TRANEXAMIC ACID / 0.7% NACL 1,000 MG/100 ML BAG IV SCH (18:30)
[2021-12-09] MEDS: DOCUSATE SODIUM 100 MG CAP PO SCH (20:10)
[2021-12-09] MEDS: FEXOFENADINE HCL 180 MG TAB PO SCH (20:10)
[2021-12-09] MEDS: MONTELUKAST SODIUM 10 MG TABLET PO SCH (20:11)
[2021-12-09] MEDS: ATORVASTATIN 10 MG TAB PO SCH (20:12)
[2021-12-09] MEDS: SENNA 8.6 MG TAB PO SCH (20:13)
[2021-12-09] MEDS: ASPIRIN 81 MG ECTAB PO SCH (20:14)
[2021-12-10] MEDS: ALLERGY Noted to ORDERED Medication SCH ×9 (00:42→01:07)
[2021-12-10] MEDS: KETOROLAC TROMETHAMINE 15 MG/ML VIAL IV SCH ×4 (01:43→19:57)
[2021-12-10] MEDS: ceFAZolin 2000MG 2,000 MG/15 ML SYR IV SCH (01:45)
[2021-12-10] MEDS: ACETAMINOPHEN 500 MG TAB PO SCH ×3 (06:05→21:37)
[2021-12-10] MEDS: LEVOTHYROXINE SODIUM 125 MCG TABLET PO SCH (06:06)
[2021-12-10 06:45] LABS: Hematocrit (blood only) 34.8 % (34.1-44.9); Hemoglobin 11.7 g/dl (12.0-16.0); Mean Corpuscular Hemoglobin 31.2 pg (25.0-34.0); Mean Corpuscular Hgb Conc 33.6 g/dL (32.0-36.0); Mean Corpuscular Volume 92.8 fL (80.0-100.0); Mean Platelet Volume 9.7 fL (9.4-12.3); Platelet Count 191 K/uL (130-400); RDW Coefficient of Variation 12.9 % (11.5-14.5); RDW Standard Deviation 43.8 fL (36.4-46.3); Red Blood Count 3.75 M/uL (3.93-5.22); White Blood Count 8.58 K/ul (4.8-10.8)
[2021-12-10 07:04] LABS: BUN Creatinine Ratio 22.1 (10-20); Creatinine Clr Calc Pharmacy 31.5 ml/min; Est GFR (African American) 34.6 ml/min; Est GFR (Non-African American) 29.9 ml/min; Potassium 4.6 mmol/L (3.5-5.1)
[2021-12-10] MEDS ORDERED: dexAMETHasone 10 MG in SYRINGE 0 ML IV SCH (08:00)
[2021-12-10] MEDS: ASPIRIN 81 MG ECTAB PO SCH ×2 (09:11→19:57)
[2021-12-10] MEDS: MULTIVITAMIN TAB PO SCH (09:11)
[2021-12-10] MEDS: ASCORBIC ACID 500 MG TAB PO SCH ×2 (09:12→17:34)
[2021-12-10] MEDS: LOSARTAN POTASSIUM 50 MG TAB PO SCH (09:13)
[2021-12-10] MEDS: DOCUSATE SODIUM 100 MG CAP PO SCH ×2 (09:14→19:59)
[2021-12-10] MEDS: SPIRONOLACTONE 25 MG TAB PO SCH (09:14)
[2021-12-10] MEDS: ATENOLOL 50 MG TABLET PO SCH (09:15)
[2021-12-10] MEDS: CHLORTHALIDONE 25 MG TAB PO SCH (09:15)
[2021-12-10] MEDS: DOCUSATE SODIUM/SENNA 50/8.6MG TAB PO SCH (09:28)
[2021-12-10] MEDS: CEROVITE ADV FORMULA TAB PO SCH (10:17)
[2021-12-10] MEDS: CHOLECALCIFEROL 1,000 UNITS 25 MCG TAB PO SCH (10:18)
[2021-12-10] MEDS: CALCIUM CARBONATE 1250MG TAB PO SCH (10:18)
[2021-12-10] MEDS: ALUMINUM/MAGNESIUM SUSP 30 ML UDC PO PRN ×2 (17:36→21:38)
--- NOTE | 2021-12-10 19:08 | Progress Notes ---
DATE OF SERVICE: 12/10/2021. SUBJECTIVE: A 76-year-old white female postoperative day 1 from a right knee replacement. She had a difficult night. Just did not sleep much. Pain has not been too bad, was just a sleeping issue. N o chest pain or shortness of breath. She is apprehensive about going home today. OBJECTIVE: VITAL SIGNS: Temperature 36.8. Vital signs are stable. GENERAL: Shows a pleasant, obese, middle-aged/elderly female. She is lying in bed this morning and looks reasonably comfortable. LUNGS: Clear to auscultation. HEART: Regular rate and rhythm. ABDOMEN: Soft, nontender, nondistended. EXTREMITIES: Grossly neurovascularly intact except as follows: Examination of the right leg reveals the leg to be well aligned. Dressing is clean, dry and intact. She can dorsiflex and plantarflex her foot appropriately. She is neurologically intact. LABORATORY DATA: Hemoglobin is 11.7. Hematocrit 34.8. Electrolytes are stable. She has got some m ild chronic renal insufficiency. ASSESSMENT: A 76-year-old female postoperative day 1 from a right knee replacement, doing okay. She is pretty apprehensive about going home. Her pain is reasonably controlled now. We will see how zhou morrison does in therapy today. My sense is that she might need a rehab stay. PLAN: 1. DVT prophylaxis includes thigh-high TEDs, SCDs, and aspirin twice a day. 2. PT, OT, weightbear as tolerated. Right total knee protocol. 3. Pain control, doing okay with current pain regimen. 4. Disposition. We are going to see how she does in therapy today. I have a feeling she is going t o stay at least another day, but we will see how things go. She might need a rehab or [facility] facility stay. Job ID: [id number]
[2021-12-10] MEDS: FEXOFENADINE HCL 180 MG TAB PO SCH (19:59)
[2021-12-10] MEDS: ATORVASTATIN 10 MG TAB PO SCH (19:59)
[2021-12-10] MEDS: MONTELUKAST SODIUM 10 MG TABLET PO SCH ×2 (20:00→20:10)
[2021-12-10] MEDS: SENNA 8.6 MG TAB PO SCH (20:00)
[2021-12-11] MEDS: KETOROLAC TROMETHAMINE 15 MG/ML VIAL IV SCH ×2 (01:20→07:36)
[2021-12-11] MEDS: LEVOTHYROXINE SODIUM 125 MCG TABLET PO SCH (05:47)
[2021-12-11] MEDS: ACETAMINOPHEN 500 MG TAB PO SCH (05:47)
[2021-12-11] MEDS: ASCORBIC ACID 500 MG TAB PO SCH (07:36)
[2021-12-11] MEDS: LOSARTAN POTASSIUM 50 MG TAB PO SCH (08:39)
[2021-12-11] MEDS: CALCIUM CARBONATE 1250MG TAB PO SCH (08:39)
[2021-12-11] MEDS: ASPIRIN 81 MG ECTAB PO SCH (08:39)
[2021-12-11] MEDS: MULTIVITAMIN TAB PO SCH (08:40)
[2021-12-11] MEDS: CEROVITE ADV FORMULA TAB PO SCH (08:40)
[2021-12-11] MEDS: DOCUSATE SODIUM/SENNA 50/8.6MG TAB PO SCH (08:40)
[2021-12-11] MEDS: DOCUSATE SODIUM 100 MG CAP PO SCH (08:40)
[2021-12-11] MEDS: SPIRONOLACTONE 25 MG TAB PO SCH (08:40)
[2021-12-11] MEDS: CHOLECALCIFEROL 1,000 UNITS 25 MCG TAB PO SCH (08:40)
[2021-12-11] MEDS: CHLORTHALIDONE 25 MG TAB PO SCH (11:00)
[2021-12-11] MEDS: ATENOLOL 50 MG TABLET PO SCH (11:00)
--- NOTE | 2021-12-11 18:24 | Progress Notes ---
DATE OF SERVICE: 12/11/2021. SUBJECTIVE: A 76-year-old white female postoperative day 2 from right knee replacement. She is doin g much better this morning. Pain is controlled. Legs moving better. Has a little bit better contro l of it. No chest pain or shortness of breath. Not feeling dizzy or lightheaded. She is hoping to go home today. OBJECTIVE: VITAL SIGNS: Temperature 36.4. Vital signs are stable. GENERAL: Shows a pleasant, elderly female. She was sitting up at his bedside, looked pretty comfort able this morning. EXTREMITIES: Examination of the right leg reveals the dressing to be clean, dry and intact. She can do a straight leg raise with some effort. She can dorsiflex and plantarflex her foot appropriately. She is neurologically intact. ASSESSMENT: A 76-year-old white female postoperative day 2 from a right knee replacement, doing well . Seems to be doing quite a bit better today. PLAN: 1. DVT prophylaxis includes thigh-high TEDs, SCDs, and aspirin twice a day. 2. PT, OT, weightbear as tolerated. Right total knee protocol. 3. Pain control, doing well with current pain regimen. 4. Disposition: She is planning to be discharged to home with some home health and her 's as sistance. We will see how therapy goes today. Should go better; if she does, we will get her home. Job ID: [id number]
--- NOTE | 2021-12-12 20:15 | Discharge Summary ---
Date of Service December 12, 2021 Discharge Data Procedures Performed Operation Date: 12/09/21 10:40 Actual Procedures p Right Total Knee Arthroplasty, Cemented(Right) - Soto Sheppard MD Hospital Course (1) Status post total right knee replacement: This is a 76 year old patient admitted on 12/09/21 and underwent total knee arthroplasty. She tolerated the procedure well and there were no complications. Transferred to the PACU post op and later to the orthopedic floor for further care. She was given ancef for antibiotic prophylaxis. She was also given EMELY stockings, SCDs, and aspirin for DVT prophylaxis. Hemoglobin, hematocrit, and vital signs were monitored during her hospital stay and remained stable. Did not require any blood transfusions. There were no complications during her hospital stay. By post op day #2 the patient was tolerating a regular diet, pain was reasonably controlled with oral pain medicine, and she was participating in physical therapy. On post op day #2 the patient was discharged home and set up with home health care. She was given printed discharge instructions including prescriptions for extra strength tylenol, aspirin, toradol, zofran, senokot, and oxycodone. Continue physical therapy, weight bearing as tolerated. Continue EMELY stockings. Follow up approximately 2 weeks post op or sooner if there are problems or concerns. Coding Level of Care Code None Diagnoses Status post total right knee replacement Z96.651
== END 2021-12-11 13:50 | disposition home health service (06) ==
LOC: 3W 08:13 → ASU 08:13